=== PATIENT | female | born 1975 | race Caucasian/White ===

== ENCOUNTER 2020-10-30 12:40 | Emergency (ER) | payer OTHER ==
[2020-10-30] MEDS ORDERED: IBUPROFEN 600 MG TABLET (FP) PO ONE ×2 (12:51→12:52)
[2020-10-30 12:57] VITALS: BP 132/83; PULSE 67; TEMP 99.2; BMI 25.4
[2020-10-30] MEDS ORDERED: SULFAMETHOXAZOLE/TRIMETHOPRIM 800MG/160MG D.S. TABLET ONE (13:36)
[2020-10-30] MEDS ORDERED: PHENAZOPYRIDINE HCL 100 MG TABLET (FP) ONE (13:36)
== END 2020-10-30 14:15 | disposition home or self-care (01) ==
LOC: FER 12:40
PROC: 2W3DX1Z Immobilization of Left Lower Arm using Splint (ICD-10-PCS; principal; 2020-10-30)
DX: S69.92XA Unspecified injury of left wrist, hand and finger(s), initial encounter (principal)
CPT/HCPCS: 73110-TC-LT-FY; 73130-TC-LT-FY; 99284-25

== ENCOUNTER 2021-11-11 17:05 | Emergency (ER) | payer OTHER ==
[2021-11-11 17:09] VITALS: BP 136/91; PULSE 71; TEMP 99; BMI 25.8
[2021-11-11] MEDS ORDERED: DIPHTH,PERTUSS(ACELL),TET 0.5 ML DISP.SYRIN IM ONE ×2 (17:17→17:30)
[2021-11-11] MEDS ORDERED: AMOX TR/POT CLAV 875MG/125MG TABLETS (FP) PO ONE (17:17)
[2021-11-11] MEDS ORDERED: AMOX TR/POT CLAV 875MG/125MG TABLETS (FP) ONE (17:30)
== END 2021-11-11 18:10 | disposition home or self-care (01) ==
LOC: FER 17:05
PROC: 3E0234Z Introduction of Serum, Toxoid and Vaccine into Muscle, Percutaneous Approach (ICD-10-PCS; principal; 2021-11-11)
DX: S31.805A Open bite of unspecified buttock, initial encounter (principal); W54.0XXA Bitten by dog, initial encounter
CPT/HCPCS: 90715; 99284-25